=== PATIENT | male | born 1985 | race Caucasian/White ===

== ENCOUNTER 2017-02-10 02:08 | Emergency (ER) | payer SELFPAY ==
[~2017-02-10] VITALS: Ht 175.3 cm; Wt 77.3 kg
[2017-02-10 02:49] VITALS: BP 194/148
== END 2017-02-10 03:18 | disposition left against medical advice (07) ==
LOC: EMS 02:10
DX: I10 Essential (primary) hypertension (principal); Z02.89 Encounter for other administrative examinations
CPT/HCPCS: 99283